=== PATIENT | female | born 1935 | race Caucasian/White ===

== ENCOUNTER 2019-01-05 12:40 | Inpatient (IN) | payer MEDICARE ==
--- NOTE | 2019-01-05 13:30 | CT ---
CT BRAIN WITHOUT CONTRAST: INDICATIONS: History of fall after a syncopal episode. COMPARISON: None. FINDINGS: There is a large laceration contusion involving the right parietal region. No depressed or displaced skull fracture is evident. There are scattered areas of subarachnoid hemorrhage seen within the sulci of both frontal lobes as w ell as the parietal regions bilaterally. There is some mild layered hemorrhage at the right sylvian f issure. There is some hemorrhage seen within the sulci of the anterior frontal lobes. The mastoid air cells are clear. There is mild mucosal thickening of the ethmoid air cells. No midline shift is evid ent. No acute infarct is noted. IMPRESSION: 1. Right parietal scalp contusion and laceration without evidence of underlying depressed or displace d skull fracture. 2. Scattered areas of likely post traumatic subarachnoid hemorrhage involving the sulci of the fronta l parietal regions bilaterally as well as a right sylvian fissure. Findings called to Dr Jalloh at 1:12 p.m. on 01/05/2019. CODE CR POS: [email or web address]
--- NOTE | 2019-01-05 13:32 | CT ---
CT CERVICAL SPINE WITHOUT CONTRAST: INDICATIONS: History of fall with neck pain. COMPARISON: None. FINDINGS: The craniocervical junction appears within normal limits. There is moderate to severe multilevel disk degenerative facet osteoarthritic change of the cervical spine. There is some straightening of the n ormal cervical lordosis. The osseous central canal is preserved. The prevertebral soft tissues appear within normal limits. The lung apices are clear. IMPRESSION: 1. No acute fracture or subluxation demonstrated. 2. Moderate to severe cervical spondylosis. POS: TPC
--- NOTE | 2019-01-05 13:58 | CT ---
CT OF THE PELVIS WITHOUT IV CONTRAST: INDICATION: History of fall with pelvic pain. COMPARISON: None. FINDINGS: There is mild degenerative change of both SI joints. No displaced fracture is grossly evident. Ther e is mild degenerative change of both hips. There is moderate degenerative change at the symphysis p ubis. No free fluid is evident. Reproductive structures are not visualized and may be surgically ab sent. The bladder is decompressed. There is a mild amount of retained stool within the colon. Ther e is scattered colonic diverticula. IMPRESSION: No acute fracture or subluxation. POS: TPC
[2019-01-05 14:01] LABS: #Eosinphils 0.3 thou/uL (0.0-0.7); #Lymphocytes 0.9 thou/uL (1.20-3.40); #Monocytes 0.6 thou/uL (0.11-0.59); #Neutrophils 6.3 thou/uL (1.40-6.50); %Basophils 0.4 % (0.0-1.0); %Eosinophils 3.5 % (0.0-10.0); %Lymphocytes 11.6 % (21.0-51.0); %Monocytes 6.9 % (0.0-10.0); %Neutrophils 77.7 % (42.0-75.0); Hemoglobin 14.2 g/dL (12.0-16.0); Mean Corpuscular HGB CONC 33.2 g/dL (32.0-36.0); Mean Corpuscular Hemoglobin 29.4 pg (27.0-31.0); Mean Corpuscular Volume 88.6 fL (78.0-98.0); Mean Platelet Volume 8.1 fL (7.4-10.4); Platelet Count 223 thou/uL (130-400); RBC Distribution Width 12.1 % (11.5-14.5); Red Blood Cell (RBC) Count 4.83 mill/uL (4.20-5.40)
[2019-01-05 14:07] LABS: Prothrombin Time 13.3 SEC (12.0-14.7)
[2019-01-05 14:10] LABS: PTT 21.2 SEC (22.9-36.1)
[2019-01-05 14:22] LABS: ALT (SGPT) 19 U/L (8-55); AST (SGOT) 23 U/L (5-34); Albumin 4.5 g/dL (3.4-4.8); Alkaline Phosphatase 67 U/L (40-110); Anion Gap 16 mmol/L (10-20); BUN (Urea Nitrogen) 12 mg/dL (9.8-20.1); Bilirubin, Total 0.5 mg/dL (0.2-1.2); Calc. Creatinine Clearance 0 mL/min (70-130); Calcium 10.1 mg/dL (7.8-10.44); Carbon Dioxide 23 mmol/L (23-31); Chloride 105 mmol/L (98-107); Estimated GFR-MDRD 65; Globulin 2.9 g/dL (2.4-3.5); Glucose 119 mg/dL (83-110); Potassium 4.3 mmol/L (3.5-5.1); Protein, Total 7.4 g/dL (6.0-8.3); Sodium 140 mmol/L (136-145)
[2019-01-05] MEDS ORDERED: hydrALAZINE 20 MG/ML VIAL SLOW IVP PRN (14:33)
[2019-01-05] MEDS ORDERED: Dextrose 5% in Water 1,000 ML IV PRN (14:33)
[2019-01-05] MEDS ORDERED: Dextrose 50% Abboject 50 ML SYRINGE SLOW IVP PRN (14:33)
[2019-01-05] MEDS ORDERED: Ondansetron PF 4 MG/2 ML Vial IVP PRN (14:33)
[2019-01-05] MEDS ORDERED: Gabapentin 100 MG CAP PO PRN (14:38)
[2019-01-05] MEDS ORDERED: traMADol HCl 50 MG TAB PO PRN (14:38)
--- NOTE | 2019-01-05 15:54 | HP ---
This is Balaji Navarro PA-C dictating a report for Clyde Simmons DO. HISTORY OF PRESENT ILLNESS: Ms. Li is an 83-year-old female, coming to the ED for evaluation of ground level fall. The patient reports the patient had a shortest spell of syncope and fell backward on her head and hit her head on the tile floor and hit her R hip. LOC less than 2 minutes. The patient reports pain of the back of her head and right hip pain after the fall. The patient did not have incontinence before or after the fall. Did not have change in sensation, weakness, or change of vision after the fall. Upon arrival in the ED, the patient was alert and awake. GCS 15. Vitals signs, stable. Glucose 135. REVIEW OF SYSTEMS: Noncontributory except per HPI. PAST MEDICAL HISTORY: The patient has past medical history of hypertension. CURRENT MEDICATIONS: 1. Hypertension medication. 2. Aspirin 81 mg b.i.d. ALLERGIES: NO KNOW ALLERGIES. PAST SURGICAL HISTORY: None. SOCIAL HISTORY: The patient lives at home with family. Ambulates around independently. PHYSICAL EXAMINATION: GENERAL: The patient is lying down in bed comfortably with no acute respiratory distress. Complained of pain of the posterior back. GENERAL: The patient is alert, awake, and oriented x3. GCS 15. HEENT: Posterior left occipital area scalp laceration, approximately 4 cm, and very stable per ED doctor. Bleeding is controlled. Eyes; pupils are 3 mm, equal bilaterally, reactive to light. No discharge of throat, nasal cannula, or ear bilaterally. NECK: Trachea, midline. Nontender to palpation. No bruising. CHEST: No bruising. Nontender to palpation. No crepitus. LUNGS: Clear bilaterally. HEART: Regular rate and rhythm. ABDOMEN: No bruising. Nondistended. Nontender to palpation. Bowel sounds are active. PELVIS: Stable. EXTREMITIES: The patient is able to move all 4 extremities. Pulses 2+ bilaterally. Sensation, intact in all 4 extremities. Range of motion is normal x4. NEUROLOGIC: No focal neurology deficits. BACK: Nontender to palpation. Normal alignment. DIAGNOSTIC STUDIES: Initial workup showed CT of the brain showing; 1. Right parietal scalp contusion and laceration without evidence of underlying depression or display of skull fracture. 2. Scattered area of likely posttraumatic subarachnoid hemorrhage involving the sulci of the frontal parietal region bilaterally as well as the right sylvian fissure. CT scan of cervical spine without contrast showed no acute fracture or subluxation demonstrated. CT scan of pelvis without IV contrast showed no acute fracture or subluxation. LABORATORY RESULTS: Show sodium 140, potassium 4.3, creatinine is 0.84, glucose is 119. PTT 21.2. White count 8000, hemoglobin 14.2, and platelet count 223. ASSESSMENT: 1. Status post ground level fall due to syncope. 2. Subarachnoid hemorrhage with neurosurgical intact. No neuro deficits. GCS 15. 3. Occipital scalp laceration. stapled , bleeding controlled. 4. History of hypertension. PLAN: Neurosurgery suggests the patient be admitted to IMCU. Neuro check q.2 hours. We will repeat brain CT scan tomorrow. The patient will be put on clear-liquid diet tonight. If stable, the patient will be working with PT and OT tomorrow. Anticipate displacement in rehabilitation facility. The patient will be put on nonpharmacological DVT prophylaxis and gastritis prophylaxis, and the patient will be put back on her home medication after nurse reconciled medication. Job ID: [id number] [facility]
--- NOTE | 2019-01-05 16:20 | ULT ---
Carotid duplex sonogram HISTORY: Syncope. Vascular disease. FINDINGS: Right: Scattered plaque. Color and spectral Doppler evaluation, peak systolic velocity of 116 cm/s, a nd IC to CC ratio of 1.6 suggest stenosis within the proximal ICA approaching 50%. Antegrade flow within the vertebral artery. Left: Mild plaque. Color and spectral Doppler evaluation, peak systolic velocity of 106 cm/s, and IC to CC ratio of 1.4 suggest no hemodynamically significant stenosis within the extracranial left ICA. IMPRESSION: Atherosclerosis. Elevated peak systolic velocity within the proximal right internal carotid artery suggestive of steno sis approaching 50%.
[2019-01-05 17:12] VITALS: BMI 20.9
[2019-01-05] MEDS: Acetaminophen 500 MG TAB PO SCH (20:51)
[2019-01-05] MEDS ORDERED: Famotidine/PF 20 mg/2ml Vial SLOW IVP SCH (21:00)
--- NOTE | 2019-01-05 21:08 | CON ---
DATE OF CONSULTATION: HISTORY OF PRESENT ILLNESS: The patient is an 83-year-old female with a past medical history of hypertension, hyperlipidemia, who presented to the emergency department per EMS after a fall with head injury. The patient reports that she was standing at the kitchen counter making [employer] when she suddenly began to feel lightheaded and dizzy. Family reports that she fell straight back hitting the back of her head on a hard floor. She had a short period of LOC. Brought to the emergency department per EMS. A noncontrast CT head on arrival, which was notable for scattered area of traumatic subarachnoid hemorrhage along the frontal and parietal regions bilaterally as well as the right sylvian fissure. The CT of her cervical spine as well as pelvis were negative for acute injuries. I visited the patient at the bedside. She has a GCS of 15. Has no focal neurologic deficits on exam. Her head laceration over the right posterior scalp has recently been repaired by the ER. She reports she is feeling much better at this time, has no complaints during her visit. PHYSICAL EXAMINATION: VITAL SIGNS: Her blood pressure is 127/85, pulse is 89, respirations 16, temperature is 97.6. The patient is 98% on room air. CONSTITUTIONAL: Awake, alert, in no acute distress. HEENT: Head, recently repaired posterior scalp laceration, which is approximately 4 cm in length. Eyes, PERRLA. Extraocular movements intact. ENT, oral mucosa is pink, intact, and moist. The patient has normal voice. NECK: Nontender to palpation. Free active range of motion. No meningismus or nuchal rigidity. RESPIRATORY: Symmetric chest expansion. No evidence of dyspnea. CARDIOVASCULAR: Regular rate and rhythm. NEUROLOGIC: A and O x4. GCS 15. No focal neurologic deficits are appreciated. ASSESSMENT AND PLAN: The patient is an 83-year-old female, status post syncopal episode with positive loss of consciousness and head injury with a noncontrast CT that shows bilateral frontal and parietal acute traumatic subarachnoid hemorrhage as well as some blood along the right sylvian fissure. We will plan to monitor the patient closely in the IMCU. Head of bed should be elevated to 30 degrees and her systolic blood pressure should be kept below 160. She should not be given any anticoagulants or antiplatelet drugs. We will go ahead and begin to advance her diet as well as mobilize appropriately. We will repeat a noncontrast head CT for additional evaluation in the morning. Dr. Castro is in aggreement. Job ID: [id number] MTDD
--- NOTE | 2019-01-06 00:44 | PRG ---
DATE OF SERVICE: 01/05/2019 HISTORY OF PRESENT ILLNESS: The patient is currently on the IMCU. She is status post a ground level fall when she sustained a subarachnoid hemorrhage. The patient was admitted earlier today. She has not had any issues. The nurses report that she maintains a GCS of 15. Upon my visit, her vital signs were stable. She was afebrile. Her [place] Coma Scale was 15. She was appropriate, only complained of a slight headache primarily where her scalp laceration was. Otherwise, she had no complaints. PHYSICAL EXAMINATION: GENERAL: She appeared comfortable, in no distress. VITAL SIGNS: Stable. RESPIRATIONS: Nonlabored. ASSESSMENT/PLAN: 1. Status post ground level fall due to syncope. 2. Subarachnoid hemorrhage, [place] coma scale 15. 3. Occipital scalp laceration, repaired. 4. History of hypertension. 5. History of syncopal episode. PLAN: Plan will be to continue supportive care and evaluation of syncope. Physical and occupational therapy. Repeat head CT in the morning, sooner as needed. Job ID: [id number]
[2019-01-06] MEDS: Acetaminophen 500 MG TAB PO SCH (02:43)
[2019-01-06 04:28] LABS: #Eosinphils 0.1 thou/uL (0.0-0.7); #Lymphocytes 1.6 thou/uL (1.20-3.40); #Monocytes 0.7 thou/uL (0.11-0.59); #Neutrophils 4.5 thou/uL (1.40-6.50); %Basophils 0.4 % (0.0-1.0); %Eosinophils 1.7 % (0.0-10.0); %Lymphocytes 23.3 % (21.0-51.0); %Monocytes 9.7 % (0.0-10.0); %Neutrophils 64.9 % (42.0-75.0); Hemoglobin 13.1 g/dL (12.0-16.0); Mean Corpuscular Hemoglobin 29.1 pg (27.0-31.0); Mean Platelet Volume 7.9 fL (7.4-10.4); Platelet Count 226 thou/uL (130-400); RBC Distribution Width 12.1 % (11.5-14.5)
[2019-01-06 04:39] LABS: Phosphorus 3.2 mg/dL (2.3-4.7)
[2019-01-06 04:43] LABS: Anion Gap 9 mmol/L (10-20); BUN (Urea Nitrogen) 10 mg/dL (9.8-20.1); Calc. Creatinine Clearance 55 mL/min (70-130); Calcium 9.8 mg/dL (7.8-10.44); Carbon Dioxide 28 mmol/L (23-31); Chloride 105 mmol/L (98-107); Estimated GFR-MDRD 80; Glucose 89 mg/dL (83-110); Magnesium 2.3 mg/dL (1.6-2.6); Potassium 3.2 mmol/L (3.5-5.1); Sodium 139 mmol/L (136-145)
[2019-01-06] MEDS ORDERED: Potassium Chloride 20 MEQ in Premix Bag 1 BAG IVPB SCH (07:15)
--- NOTE | 2019-01-06 08:07 | CT ---
PRELIMINARY REPORT/[facility]/EMERGENCY AFTER HOURS PROCEDURE: PROCEDURE INFORMATION: Exam: CT Head Without Contrast Exam date and time: 01/06/2019 4:08 AM Age: 83 years old Clinical history: Condition or disease; Patient HX: Follow up sah TECHNIQUE: Imaging protocol: Computed tomography of the head without contrast. COMPARISON: CT Brain WO Con 01/05/2019 1:03 PM FINDINGS: Brain: Scattered areas of bilateral subarachnoid hemorrhage most prominent in the frontoparietal kevin on on the right and parietal region on the left, decreased in particular in the frontal regions. No n ew hemorrhage identified. Ventricles: Unremarkable. Bones/joints: No acute fracture. Sinuses: Unremarkable. Mastoid air cells: Unremarkable. Soft tissues: Right parieto-occipital scalp swelling and skin izzy. IMPRESSION: Decreased subarachnoid hemorrhage. Thank you for allowing us to participate in the care of your patient. Dictated and Authenticated by: Tigre Linton MD 01/06/2019 4:29 AM Central Time ([place] & [place]) FINAL REPORT EMERGENCY AFTER HOURS CT BRAIN: I agree with the preliminary report provided by [facility]. Exam is compared to prior dated 01/05/19 at 1305 hours. The scattered areas of subarachnoid hemorrhage have dispersed from the prior exam. There are a few sm all areas of subarachnoid hemorrhage layered within the sulci of the frontoparietal cortex, as well a s the sylvian fissures and interpeduncular cistern. There has been interval stapling of the large lac eration involving the right parietal scalp with a right parietal scalp contusion. POS:
[2019-01-06] MEDS ORDERED: Atorvastatin Calcium 10 MG TAB PO SCH (09:00)
[2019-01-06] MEDS ORDERED: Acetaminophen 500 MG TAB PO SCH (09:00)
[2019-01-06] MEDS ORDERED: Amlodipine 5 MG TAB PO SCH (09:00)
[2019-01-06] MEDS ORDERED: Citalopram 20 MG TAB PO SCH (09:00)
--- NOTE | 2019-01-06 10:12 | PRG ---
DATE OF SERVICE: 01/06/2019 The patient was seen and examined. I agree with Thelma Rodriguez's evaluation on 01/05/2019. The patient is an 83-year-old woman, who fell striking her head. She is neurologically intact without complaints. She had a parietal laceration that was repaired. CT scans revealed some scattered traumatic subarachnoid hemorrhage that was stable on followup CT. IMPRESSION AND PLAN: Traumatic subarachnoid hemorrhage, stable clinically and radiographically. No specific need for clinical and radiographic followup and okay for dismissal today. 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 Job ID: [id number]
[2019-01-06 10:43] VITALS: TEMP 97.9
--- NOTE | 2019-01-06 12:15 | PRG ---
DATE OF SERVICE: 01/06/2019 The patient is an 83-year-old female, status post syncope with fall with scattered traumatic subarachnoid hemorrhage, which was stable on followup CT. She was seen by Dr. Castro earlier today, who agreed that she was appropriate for dismissal back to home. No clinical radiologic followup is needed with Neurosurgery. We feel that she could resume her 81 mg aspirin in 1 week's time. Please reach out to Neurosurgery for additional questions or concerns. Job ID: [id number]
== END 2019-01-06 11:35 | disposition home or self-care (01) | DRG 87 ==
LOC: ERS 12:40 → IMCU/EMU 16:47
PROVIDERS: ADMIT Surgery; ATTEND Surgery
PROC: 0HQ0XZZ Repair Scalp Skin, External Approach (ICD-10-PCS; principal; 2019-01-05)
DX: S06.6X1A Traumatic subarachnoid hemorrhage with loss of consciousness of 30 minutes or less, initial encounter (principal); I10 Essential (primary) hypertension; S01.01XA Laceration without foreign body of scalp, initial encounter; R40.2362 Coma scale, best motor response, obeys commands, at arrival to emergency department; R40.2142 Coma scale, eyes open, spontaneous, at arrival to emergency department; R40.2252 Coma scale, best verbal response, oriented, at arrival to emergency department; W18.39XA Other fall on same level, initial encounter; Y93.G3 Activity, cooking and baking; Y92.090 Kitchen in other non-institutional residence as the place of occurrence of the external cause; Z90.710 Acquired absence of both cervix and uterus; Z90.49 Acquired absence of other specified parts of digestive tract
CPT/HCPCS: 36415; 70450; 72125; 72192; 80048; 80053; 83735; 84100; 85025; 85610; 85730; 93005; 93880; G0390; J3480; S0028

== ENCOUNTER 2019-01-13 13:09 | Emergency (ER) | payer MEDICARE | END 2019-01-13 14:06 | disposition home or self-care (01) | LOC: ERS 13:09 | DX: S01.01XD Laceration without foreign body of scalp, subsequent encounter (principal); W18.39XD Other fall on same level, subsequent encounter ==

== ENCOUNTER 2021-08-04 14:24 | Emergency (ER) | payer MEDICARE ==
[2021-08-04] MEDS ORDERED: Lidocaine 1% PF 5 ML VIAL ONE (16:06)
[2021-08-04] MEDS ORDERED: Oxymetazoline HCl 0.05% (30 ML BOT) ONE ×2 (17:06→17:11)
== END 2021-08-04 17:30 | disposition home or self-care (01) ==
LOC: ERS 14:24
DX: S02.2XXA Fracture of nasal bones, initial encounter for closed fracture (principal); S02.31XA Fracture of orbital floor, right side, initial encounter for closed fracture; Z87.891 Personal history of nicotine dependence; W19.XXXA Unspecified fall, initial encounter
CPT/HCPCS: 12011; 70450; 70486; 72125